=== PATIENT | female | born 1945 | race Caucasian/White ===

== ENCOUNTER 2018-01-14 11:16 | Emergency (ER) | payer MEDICARE ==
[2018-01-14] MEDS ORDERED: Ondansetron ODT 4 MG TAB ONE (11:32)
[2018-01-14 11:58] LABS: Bilirubin Small (Negative); Blood, Urine Large (Negative); Clarity Hazy (Clear); Glucose, Urine (Dipstick) Negative (Negative); Leukocyte Negative (Negative); Nitrite Negative (Negative); Protein, Urine (Dipstick) 100 mg/dL (Neg-Trace); Urobilinogen 0.2 mg/dL (0.2-1.0); pH, Urine 5.5 (5.0-9.0)
[2018-01-14 11:59] LABS: Specific Gravity, Urine 1.019 (1.002-1.036)
[2018-01-14 12:03] LABS: #Lymphocytes 1.3 thou/uL (1.20-3.40); #Monocytes 0.4 thou/uL (0.11-0.59); #Neutrophils 9.4 thou/uL (1.40-6.50); %Basophils 0.3 % (0.0-1.0); %Lymphocytes 11.4 % (21.0-51.0); %Monocytes 3.9 % (0.0-10.0); %Neutrophils 84.3 % (42.0-75.0); Hemoglobin 15.2 g/dL (12.0-16.0); Mean Corpuscular HGB CONC 32.8 g/dL (32.0-36.0); Mean Corpuscular Hemoglobin 28.5 pg (27.0-31.0); Mean Corpuscular Volume 86.9 fL (78.0-98.0); Mean Platelet Volume 8.7 fL (7.4-10.4); Platelet Count 320 thou/uL (130-400); RBC Distribution Width 12.5 % (11.5-14.5); Red Blood Cell (RBC) Count 5.34 mill/uL (4.20-5.40); White Blood Cell (WBC) Count 11.1 thou/uL (4.8-10.8)
[2018-01-14 12:03] LABS: Bacteria/HPF Rare-Few HPF (None Seen); Hyaline Casts/LPF 0-3 HYALINE CAST LPF (0-3 Hyaline); RBC/HPF 21-50 HPF (0-3); Squamous Epithelial 0-3 HPF (0-3); WBC/HPF 0-3 HPF (0-3)
--- NOTE | 2018-01-14 12:12 | CT ---
ABDOMEN AND PELVIC CT SCAN WITHOUT IV CONTRAST: HISTORY: A 72-year-old female with a history of abdominal pain. FINDINGS: Mild linear stranding in the right base which has more of a chronic appearance. The liver, gallbladd er, pancreas, spleen, and adrenal glands are unremarkable. No renal calculus or evidence for acute G U obstruction. Normal-appearing appendix. Unremarkable uterus and adnexal regions. No large or sma ll bowel obstruction. No adenopathy, abscess, or abnormal fluid collection. IMPRESSION: Unremarkable abdomen and pelvic CT scan. No acute process. POS: [facility]
[2018-01-14 12:18] LABS: ALT (SGPT) 12 U/L (8-55); AST (SGOT) 14 U/L (5-34); Albumin 4.8 g/dL (3.4-4.8); Alkaline Phosphatase 97 U/L (40-150); Anion Gap 15 mmol/L (10-20); BUN (Urea Nitrogen) 15 mg/dL (9.8-20.1); Bilirubin, Total 0.7 mg/dL (0.2-1.2); Calc. Creatinine Clearance 0 mL/min (70-130); Calcium 9.9 mg/dL (7.8-10.44); Carbon Dioxide 26 mmol/L (23-31); Chloride 99 mmol/L (98-107); Estimated GFR-MDRD 66; Globulin 3.1 g/dL (2.4-3.5); Glucose 126 mg/dL (83-110); Lipase 14 U/L (8-78); Protein, Total 7.9 g/dL (6.0-8.3); Sodium 136 mmol/L (136-145)
[2018-01-14] MEDS ORDERED: Morphine 4 MG/ML VIAL ONE (12:30)
[2018-01-14] MEDS ORDERED: Sodium Chloride 0.9% 1,000 ML ONE (12:30)
[2018-01-14] MEDS ORDERED: Ketorolac Tromethamine 30 MG/ML VIAL ONE (12:30)
--- NOTE | 2018-01-14 15:46 | CT ---
ABDOMEN AND PELVIC CT SCAN WITH IV CONTRAST: HISTORY: Concern for a left ureteral calculus with left lower quadrant pain and hematuria. FINDINGS: This is a multiphase postcontrast study performed after a previous noncontrast study. There are mult iple low-attenuation foci within both kidneys, several of which are probably small cysts. Several of these on the left side have more the appearance of old infarct or old scarring from prior pyelonephr itis but without acute changes of pyelonephritis. No evidence for renal calculus or obstruction. A calcific area of concern in the left upper pelvis was a phlebolith. This is not a calculus. N o evidence for a bladder mass. Additional delayed postcontrast images were obtained through the pelv is. These confirm that the calcific area of concern on the noncontrast study was not in the ureter. Unremarkable-appearing bladder which has extensive contrast within it at this time. IMPRESSION: No evidence of renal calculus or obstruction. Small bilateral renal cysts as well as some left re nal cortical scars or areas of old infarct or old pyelonephritis without evidence for other acute pro cess. Findings were discussed with Dr. Mayfield in the ER at 1:30 p.m. GLORIA BERMUDEZ POS: LO
== END 2018-01-14 14:51 | disposition home or self-care (01) ==
LOC: MADERS 11:16
DX: M54.5 Low back pain (principal); R31.9 Hematuria, unspecified; F17.210 Nicotine dependence, cigarettes, uncomplicated; R11.2 Nausea with vomiting, unspecified; R10.32 Left lower quadrant pain
CPT/HCPCS: 72192; 74176; 74177; 80053; 81003; 81015; 83605; 83690; 85025; 96361; 96374; 96375; J1885; J2270; J7050; Q0162

== ENCOUNTER 2018-01-19 12:00 | Outpatient (CLI) | payer MEDICARE ==
--- NOTE | 2018-01-19 13:59 | ULT ---
RENAL ULTRASOUND: Comparison: CT abdomen/pelvis 01-14-18 History: Renal cyst. Hematuria. Technique: Multiplanar grayscale and color doppler images were obtained in a renal ultrasound. FINDINGS: The kidneys demonstrate cortical thinning. A small 2 cm parapelvic cyst is seen in the right kidney. No cysts are seen in the left kidney. The kidneys measures 9.0 and 9.3 cm in length on the right and left respectively. Limited visualization of the urinary bladder is unremarkable. IMPRESSION: 1. Small right parapelvic cyst. 2. The hypodense regions in the left kidney have cortical retraction on the CT and represent areas of scarring rather than cysts. POS: [facility]
== END 2018-01-19 12:01 | disposition home or self-care (01) ==
LOC: MADULT 12:00
PROVIDERS: ATTEND Family Medicine
DX: N28.1 Cyst of kidney, acquired (principal); N28.89 Other specified disorders of kidney and ureter
CPT/HCPCS: 76770